=== PATIENT | male | born 1980 | race Caucasian/White ===

== ENCOUNTER → 2020-01-25 16:12 | Outpatient (BNVA) | payer SELFPAY | PROVIDERS: Family Provider Nurse Practitioner Family; PCP Nurse Practitioner Family; Visit Provider Nurse Practitioner Family | DX: J03.80 Acute tonsillitis due to other specified organisms (principal); B96.89 Other specified bacterial agents as the cause of diseases classified elsewhere; Z68.37 Body mass index [BMI] 37.0-37.9, adult | CPT/HCPCS: 87071; 87880 ==

== ENCOUNTER 2024-03-29 23:59 | Emergency (ER) | payer OTHER, SELFPAY ==
[2024-03-30 00:14] VITALS: BP 144/83; PULSE 95; RESP 16; TEMP 37; O2SAT 94
[2024-03-30 00:19] VITALS: BP 143/79; PULSE 90; RESP 16; O2SAT 98
[2024-03-30 00:20] LABS: Basophils # 0.1 10^3/uL (0.0-0.1); Basophils % 0.6 %; Eosinophils # 0.5 10^3/uL (0.0-0.8); Eosinophils % 3.7 %; Hematocrit 47.4 % (37-53); Lymphocytes # 2.3 10^3/uL (0.8-4.8); Lymphocytes % 18.5 %; Mean Corpuscular Hemoglobin 31.5 pg (27-33); Mean Corpuscular Volume 92.8 fl (82-101); Mean Platelet Volume 10.2 fL (7.4-10.4); Monocytes # 1.1 10^3/uL (0.2-0.9); Monocytes % 8.4 %; Neutrophils % 68.4 %; Nucleated Red Blood Cells % 0 %; Platelet Count 237 10^3/cmm (157-399); Red Blood Count 5.11 10^6/uL (3.85-5.65); Red Cell Distribution Width 12.3 % (12.1-15.1); White Blood Count 12.59 10^3/uL (3.29-11.43)
--- NOTE | 2024-03-30 00:32 | CTR_ITS ---
PROCEDURE INFORMATION: Exam: CT Abdomen And Pelvis With Contrast Exam date and time: 03/30/2024 12:50 AM Age: 43 years old Clinical indication: Abdominal pain; Localized; Patient HX: C/O lower abd pain TECHNIQUE: Imaging protocol: Computed tomography of the abdomen and pelvis with contrast. Radiation optimization: All CT scans at this facility use at least one of these dose optimization techniques: automated exposure control; mA and/or kV adjustment per patient size (includes targeted exams where dose is matched to clinical indication); or iterative reconstruction. Contrast material: OMNI 350; Contrast volume: 100 ml; Contrast route: INTRAVENOUS (IV); COMPARISON: CT lumbar spine wo con* [id number] 05/25/2019 3:15 PM RADIATION DOSE METRICS: Total DLP (mGy-cm): 1279.73 FINDINGS: Liver: Normal. No mass. Gallbladder and biliary ducts: Normal. No calcified stones. No ductal dilation. Pancreas: Normal. No ductal dilation. Spleen: Normal. No splenomegaly. Adrenal glands: Normal. No mass. Kidneys and ureters: Left lower pole simple cortical renal cyst. Stomach and bowel: Colonic diverticulosis with significant pericolonic inflammation along the sigmoid colon consistent with acute diverticulitis. No evidence of complication. No mechanical bowel obstruction. Appendix: No evidence of appendicitis. Intraperitoneal space: Unremarkable. No free air. No significant fluid collection. Vasculature: Unremarkable. No abdominal aortic aneurysm. Lymph nodes: Unremarkable. No enlarged lymph nodes. Urinary bladder: Unremarkable as visualized. Reproductive: Unremarkable as visualized. Bones/joints: Moderate lumbar spondylosis and facet arthropathy. Posterior osteophytosis at the L3-L4 vertebral body level causes mild spinal canal stenosis. Soft tissues: Unremarkable. CT/CT abdomen pelvis w con* [id number] IMPRESSION: Acute uncomplicated diverticulitis of the sigmoid colon. COMMENTS: Consistent with the [employer]'s Incidental Findings Committee white paper (J Am Zenia Radiol 2018): Any incidental renal lesion less than 1 cm or classified as too small to characterize, or any incidental cystic renal lesion characterized as simple-appearing, is likely benign. No follow-up imaging is recommended for these lesions per consensus recommendations based on imaging criteria.
--- NOTE | 2024-03-30 00:34 | ED_ITS ---
HPI - Abdominal Pain 2 General: Chief Complaint: Abdominal Pain Stated Complaint: low abd pain Time Seen by Provider: 03/30/24 00:01 Source: patient Mode of arrival: ambulatory Limitations: no limitations History of Present Illness: 43-year-old male states been having some lower abdominal pain over the last 2 days states pain is suprapubic in nature states it is pain currently is a 3 out of 10 tingling worse with movement and palpation he denies any vomiting or diarrhea denies any fevers. Associated Symptoms: Denies chills, diarrhea, fever(s), nausea and vomiting Related Data Home Medications Medication Instructions Recorded Confirmed loratadine 10 mg tablet (Claritin) 10 mg PO DAILY 07/15/19 01/25/20 Previous Rx's Medication Instructions Recorded amoxicillin 875 mg tablet 875 mg PO BID 10 days #20 tabs 01/25/20 ciprofloxacin HCl 500 mg tablet 500 mg PO BID #14 tabs 03/30/24 (Cipro) hydrocodone 5 mg-acetaminophen 325 1 tab PO Q6H PRN pain #14 tabs 03/30/24 mg tablet metronidazole 500 mg tablet 500 mg PO Q8H 7 days #21 tabs 03/30/24 ondansetron 4 mg disintegrating 4 mg PO Q6H PRN nausea and 03/30/24 tablet vomiting #14 tabs Allergies Allergy/AdvReac Type Severity Reaction Status Date / Time No Known Allergies Allergy Verified 03/30/24 00:19 Review of Systems 2 Const: Denies: fever(s), chills, body aches or change in appetite ENMT: Denies: throat pain or dental pain Card: Denies: chest pain Resp: Denies: dyspnea GI: Reports: abdominal pain; Denies: nausea, vomiting or diarrhea Musc: Denies: neck pain or back pain Skin/Breast: Denies: rash Neuro: Denies: headache(s) PFSH ED 2 PFSH: Social History Smoking and tobacco/nicotine status: current every day tobacco/nicotine user smokeless tobacco Smokeless tobacco user: snuff Smokeless tobacco details: dipped x 30 yrs Quit status (tobacco/nicotine): considering quitting Second hand smoke exposure: Yes Alcohol intake: current Alcohol intake frequency: few times a week Alcohol type: beer Substance/Drug Use: never Lives independently: Yes Current occupational status: employed Current gender identity: Male Physical Exam 2 Const: COMMON NORMALS: no acute distress, patient oriented x3 and healthy appearing HENMT: COMMON NORMALS: normocephalic and atraumatic HEAD & SCALP: n ormocephalic and atraumatic Eye: COMMON NORMALS: conjunctivae normal CONJUNCTIVA: Yes conjunctivae normal Neck/C-Spine: COMMON NORMALS: full ROM and supple Chest: COMMONS NORMALS: normal inspection of the chest Resp: COMMON NORMALS: normal respiratory effort, No retractions, No use of accessory muscles and clear to auscultation bilaterally AUSCULTATION: clear to auscultation bilaterally Cardio: COMMON NORMALS: regular rate, regular rhythm and No murmurs present (Cardio) RATE: regular rate RHYTHM: regular rhythm GI: COMMON NORMALS: Normal to inspection, nondistended, normoactive bowel sounds present, Soft to palpation and no masses PALPATION: Yes Soft to palpation OTHER: suprapubic tenderness Extremity: COMMON NORMALS: normal to inspection and full ROM Neuro: COMMON NORMALS: patient oriented x3, moves all extremities and no focal motor deficits Psych: COMMON NORMALS: mental status grossly normal, Normal thought process present and cooperative THOUGHT PROCESS: Normal thought process present Skin: COMMON NORMALS: no rashes or lesions noted and no wounds GENERAL SKIN EXAM: no rashes or lesions noted Course 2 Vital Signs: Vital signs: Vital Signs Temperature 98.6 F 03/30/24 00:14 Pulse Rate 95 03/30/24 00:14 Respiratory Rate 16 03/30/24 00:14 Blood Pressure 144/83 03/30/24 00:14 Pulse Oximetry 94 03/30/24 00:14 Oxygen Delivery Me thod Room Air 03/30/24 00:14 MDM - Abdominal Pain Medical Decision Making Patient presents here with abdominal pain CT does show diverticulitis he has minimal tenderness on exam we will treat outpatient he is stable for discharge his follow-up with PCP return if worsening he understands agrees to plan Medical Records I reviewed the patient's medical records. Lab Data I reviewed the patient's lab results. 03/30/24 00:13 03/30/24 00:13 Labs/Radiology: Radiology Impressions Abdomen/Pelvis CT 03/30/24 00:32 IMPRESSION: Acute uncomplicated diverticulitis of the sigmoid colon. COMMENTS: Consistent with the [employer]'s Incidental Findings Committee white paper (J Am Zenia Radiol 2018): Any incidental renal lesion less than 1 cm or classified as too small to characterize, or any incidental cystic renal lesion characterized as simple-appearing, is likely benign. No follow-up imaging is recommended for these lesions per consensus recommendations based on imaging criteria. Laboratory Results WBC 12.59 10^3/uL (3.29-11.43) H 03/30/24 00:13 RBC 5.11 10^6/uL (3.85-5.65) 03/30/24 00:13 Hgb 16.10 g/dL (11.27-16.99) 03/30/24 00:13 Hct 47.4 % (37-53) 03/30/24 00:13 MCV 92.8 fl (82-101) 03/30/24 00:13 MCH 31.5 pg (27-33) 03/30/24 00:13 MCHC 34.0 g/dL (30-55) 03/30/24 00:13 RDW 12.3 % (12.1-15.1) 03/30/24 00:13 Plt Count 237 10^3/cmm (157-399) 03/30/24 00:13 MPV 10.2 fL (7.4-10.4) 03/30/24 00:13 Neut % (Auto) 68.4 % 03/30/24 00:13 Lymph % (Auto) 18.5 % 03/30/24 00:13 [place] % (Auto) 8.4 % 03/30/24 00:13 Eos % (Auto) 3.7 % 03/30/24 00:13 Baso % (Auto) 0.6 % 03/30/24 00:13 Neut # (Auto) 8.60 10^3/uL (1.8-7.7) H 03/30/24 00:13 Lymph # (Auto) 2.3 10^3/uL (0.8-4.8) 03/30/24 00:13 [place] # (Auto) 1.1 10^3/uL (0.2-0.9) H 03/30/24 00:13 Eos # (Auto) 0.5 10^3/uL (0.0-0.8) 03/30/24 00:13 Baso # (Auto) 0.1 10^3/uL (0.0-0.1) 03/30/24 00:13 Nucleated RBC % (auto) 0 % 03/30/24 00:13 Nucleated RBCs # 0.0 /100WBC 03/30/24 00:13 Sodium 138 mmol/L (136-145) 03/30/24 00:13 Potassium 4.1 mmol/L (3.5-5.1) 03/30/24 00:13 Chloride 101 mmol/L (98-107) 03/30/24 00:13 Carbon Dioxide 27 mmol/L (22-29) 03/30/24 00:13 Anion Gap 14.1 (5-19) 03/30/24 00:13 BUN 13 mg/dL (6-20) 03/30/24 00:13 Creatinine 0.9 mg/dL (0.7-1.2) 03/30/24 00:13 GFR Calculation 91.3 mL/min (90-130) 03/30/24 00:13 Glucose 184 mg/dL (65-115) H 03/30/24 00:13 Calculated Osmolality 291 mOsm/kg (285-295) 03/30/24 00:13 Calcium 9.2 mg/dL (8.5-10.5) 03/30/24 00:13 Total Bilirubin 0.3 mg/dL (0.15-1.2) 03/30/24 00:13 AST 23 U/L (0-40) 03/30/24 00:13 ALT 41 U/L (0-41) 03/30/24 00:13 Alkaline Phosphatase 48 U/L (40-130) 03/30/24 00:13 Total Protein 7.8 g/dL (6.6-8.7) 03/30/24 00:13 Albumin 4.3 g/dL (3.5-5.2) 03/30/24 00:13 Globulin 3.5 g/dL (1.3-4.6) 03/30/24 00:13 Lipase 27 U/L (13-60) 03/30/24 00:13 All radiology interpretation(s) finalized by discharge Discharge Plan Discharge Patient Disposition: Home Clinical Impression: Diverticulitis Condition: Stable Prescriptions: New hydrocodone-acetaminophen 5-325 mg tablet 1 tab PO Q6H PRN (Reason: pain) Qty: 14 0RF metronidazole 500 mg tablet 500 mg PO Q8H 7 Days Qty: 21 0RF Cipro 500 mg tablet 500 mg PO BID Qty: 14 0RF ondansetron 4 mg tablet,disintegrating 4 mg PO Q6H PRN (Reason: nausea and vomiting) Qty: 14 0RF No Action loratadine [Claritin] 10 mg tablet 10 mg PO DAILY amoxicillin 875 mg tablet 875 mg PO BID 10 Days Qty: 20 0RF Discharge Orders: Discharge ED (Routine); Ordered 03/30/24 Ordered By: Al Fuller Referrals: Sandra Traore FNP [Primary Care Provider] - 4-7 days Discharge Diet: Advance as tolerated Discharge Activity: Resume usual activity Patient Instructions: Diverticulitis (ED), Opioid Safety Coding Level of Care Code ED Staff Midwife/Apprenticeship Director for Jude Malave
[2024-03-30 00:36] LABS: Alanine Aminotransferase 41 U/L (0-41); Albumin Level 4.3 g/dL (3.5-5.2); Alkaline Phosphatase 48 U/L (40-130); Anion Gap 14.1 (5-19); Aspartate Amino Transferase 23 U/L (0-40); Blood Urea Nitrogen 13 mg/dL (6-20); Calcium 9.2 mg/dL (8.5-10.5); Carbon Dioxide 27 mmol/L (22-29); Chloride 101 mmol/L (98-107); Creatinine Clr Calc Pharmacy 159.8744; Globulin 3.5 g/dL (1.3-4.6); Glomerular Filtration Rate 91.3 mL/min (90-130); Glucose 184 mg/dL (65-115); Lipase 27 U/L (13-60); Osmolality Calculated 291 mOsm/kg (285-295); Potassium 4.1 mmol/L (3.5-5.1); Sodium 138 mmol/L (136-145); Total Bilirubin 0.3 mg/dL (0.15-1.2); Total Protein 7.8 g/dL (6.6-8.7)
[2024-03-30] MEDS: iohexol 350 mg/mL 500 mL Btl (per mL) IV (00:54)
[2024-03-30] MEDS: sodium chloride 0.9% 1,000 ML 999 ML IV (01:58)
[2024-03-30] MEDS: metroNIDAZOLE 500 MG Tablet PO (02:06)
[2024-03-30] MEDS: ciprofloxacin 500 mg Tablet PO (02:06)
[2024-03-30 02:09] VITALS: BP 118/75; PULSE 79; O2SAT 94
[2024-03-30 02:29] VITALS: BP 125/77; PULSE 86; RESP 16; O2SAT 98
--- NOTE | 2024-03-30 09:26 | DCPLANNER ---
messaged gen surg for er f/u
== END 2024-03-30 02:42 | disposition home or self-care (01) ==
PROVIDERS: Emergency Provider Emergency Medicine; PCP Nurse Practitioner Family
DX: K57.32 Diverticulitis of large intestine without perforation or abscess without bleeding (principal); F17.220 Nicotine dependence, chewing tobacco, uncomplicated
CPT/HCPCS: 74177; 80053; 83690; 85025; 99285; J7030

== ENCOUNTER → 2025-03-11 10:44 | Outpatient (BNVA) | payer OTHER, SELFPAY | PROVIDERS: PCP Nurse Practitioner Family; Visit Provider Clinical Nurse Specialist Adult Health | DX: J06.9 Acute upper respiratory infection, unspecified (principal) | CPT/HCPCS: 87426 ==